=== PATIENT | female | born 1950 ===

== ENCOUNTER 2018-03-04 11:40 | Emergency (ER) | payer OTHER ==
[2018-03-04 11:50] VITALS: RESP 18
[2018-03-04] MEDS ORDERED: Naproxen 500 MG TAB PO STA (12:46)
[2018-03-04] MEDS ORDERED: Naproxen 500 MG TAB PO ONE (12:52)
--- NOTE | 2018-03-04 12:53 | ED PDOC ---
Lower Extremity Pain/Injury Time Seen by Provider: 03/04/18 12:31 Chief Complaint (Nursing): Lower Extremity Problem/Injury Chief Complaint (Provider): Lower Extremity Problem/Injury History Per: Patient History/Exam Limitations: no limitations Onset/Duration Of Symptoms: Days (x1) Current Symptoms Are (Timing): Still Present Additional Complaint(s): Alaina Kay is a 67 year old female with no past medical history who is presenting to the ED for evaluation of left foot pain onset yesterday. Patient states that she has been walking a lot and developed this pain to left foot. She denies any numbness, tingling, or weakness in the extremity. Patient offers no other medical complaints at this time. PMD: none provided Past Medical History Reviewed: Historical Data, Nursing Documentation, Vital Signs Vital Signs: Last Vital Signs Temp 97.9 F 03/04/18 11:47 Pulse 81 03/04/18 11:47 Resp 18 03/04/18 11:47 BP 142/69 03/04/18 11:47 Pulse Ox 98 03/04/18 11:47 - Medical History PMH: No Chronic Diseases - Surgical History Surgical History: No Surg Hx - Family History Family History: States: Unknown Family Hx - Social History Current smoker - smoking cessation education provided: No Alcohol: None Drugs: Denies - Immunization History Hx Tetanus Toxoid Vaccination: No Hx Influenza Vaccination: No Hx Pneumococcal Vaccination: No - Home Medications Home Medications: Ambulatory Orders Medication Instructions Recorded Naproxen [Naprosyn] 500 mg PO BID PRN #20 tablet 03/04/18 traMADol [Ultram] 50 mg PO Q6H PRN #15 tab 03/04/18 - Allergies Allergies/Adverse Reactions: Allergies Allergy/AdvReac Type Severity Reaction Status Date / Time No Known Allergies Allergy Verified 03/04/18 11:50 Review of Systems ROS Statement: Except As Marked, All Systems Reviewed And Found Negative Musculoskeletal: Positive for: Foot Pain (left) Neurological: Negative for: Weakness, Numbness, Other (tingling ) Physical Exam - Reviewed Nursing Documentation Reviewed: Yes Vital Signs Reviewed: Yes - Physical Exam Appears: Positive for: Well, Non-toxic, No Acute Distress Head Exam: Positive for: ATRAUMATIC, NORMAL INSPECTION, NORMOCEPHALIC Skin: Positive for: Normal Color Back: Positive for: Normal Inspection Extremity: Positive for: Normal ROM, Tenderness (tenderness to posterior and anterior calcaneus). Negative for: Pedal Edema, Calf Tenderness, Deformity, Swelling, Other (ecchymosis ) Neurologic/Psych: Positive for: Alert, Oriented. Negative for: Motor/Sensory Deficits - ECG O2 Sat by Pulse Oximetry: 98 (RA) Pulse Ox Interpretation: Normal Medical Decision Making Medical Decision Making: Time: 12:46 Plan: --Naproxen 500 mg PO --Ultram 50 mg PO --x-Ray Left Foot Scribe Attestation: Documented by Karoline Sapp, acting as a scribe for Kierra Marie PA-C. Provider Scribe Attestation: All medical record entries made by the Scribe were at my direction and personally dictated by me. I have reviewed the chart and agree that the record accurately reflects my personal performance of the history, physical exam, medical decision making, and the department course for this patient. I have also personally directed, reviewed, and agree with the discharge instructions and disposition. Disposition - Clinical Impression Clinical Impression: Calcifying tendinitis - Patient ED Disposition Is Patient to be Admitted: No Counseled Patient/Family Regarding: Diagnosis, Need For Followup, Rx Given - Disposition Disposition: Routine/Home Disposition Time: 13:32 Condition: GOOD Prescriptions: Naproxen [Naprosyn] 500 mg PO BID PRN #20 tablet PRN Reason: Pain traMADol [Ultram] 50 mg PO Q6H PRN #15 tab PRN Reason: Pain Instructions: Tendonitis (DC) Forms: [facility] (Croatian) - POA Present On Arrival: None
[2018-03-04 14:43] VITALS: BP 120/72; PULSE 76; TEMP 98; O2SAT 99
--- NOTE | 2018-03-04 17:51 | RAD ---
Date of service: 03/04/2018 PROCEDURE: Left Foot Radiographs. HISTORY: pain, heel without trauma COMPARISON: None. FINDINGS: BONES: Normal. No fracture. JOINTS: Normal. SOFT TISSUES: Normal. OTHER FINDINGS: None. IMPRESSION: Normal left foot radiographs.
== END 2018-03-04 13:45 | disposition home or self-care (01) ==
LOC: H.ER 11:40
DX: M65.272 Calcific tendinitis, left ankle and foot (principal)